=== PATIENT | male | born 1960 | race Caucasian/White ===

== ENCOUNTER 2022-02-11 20:51 | Observation (INO) ==
[2022-02-11] MEDS ORDERED: *HR* Dextrose 50 % in Water (Syg) 50 ML SYRINGE ONE (21:02)
[2022-02-11] MEDS ORDERED: *HR* Dextrose 50 % in Water (Syg) 50 ML SYRINGE IVP ONE (21:02)
[2022-02-11 21:24] LABS: Basophils # 0.1 K/mcL (0.0-0.2); Basophils % 0.3 %; Eosinophils # 0.1 K/mcL (0.0-0.6); Eosinophils % 0.5 %; Hematocrit 56.7 % (37.5-50.1); Hemoglobin 18.4 g/dL (12.9-16.9); Immature Granulocytes % 0.5 % (0-4); Lymphocytes # 3.3 K/mcL (0.6-4.6); Lymphocytes % 18.2 %; Mean Corpuscular HGB Conc 32.5 g/dL (31.6-35.5); Mean Corpuscular Hemoglobin 27.7 pg (28.0-33.3); Mean Corpuscular Volume 85.3 fL (83.0-100.0); Mean Platelet Volume 10.1 fL (9.4-12.4); Monocytes % 11.1 %; Neutrophils # 12.7 K/mcL (1.6-8.9); Platelet Count 202 K/mcL (140-400); Red Blood Count 6.65 M/mcL (4.19-5.50); Red Cell Distribution Width 16.6 % (11.5-14.5); Segmented Neutrophils % 69.4 %; White Blood Count 18.2 K/mcL (4.3-11.1)
[2022-02-11 21:45] LABS: Alanine Aminotransferase 26 Units/L (7-52); Albumin 4.6 g/dL (3.5-5.7); Albumin/Globulin Ratio 1.5 (1.1-2.2); Alkaline Phosphatase 73 Units/L (34-104); Aspartate Amino Transferase 29 Units/L (13-39); BUN/Creatinine Ratio 18 (6-26); Bilirubin,Direct 0.2 mg/dL (0.0-0.2); Bilirubin,Indirect 0.4 mg/dL (0.0-1.0); Bilirubin,Total 0.6 mg/dL (0.3-1.0); Blood Urea Nitrogen 18 mg/dL (8-23); Calcium 10.4 mg/dL (8.6-10.3); Carbon Dioxide 28 mEq/L (23-29); Chloride 102 mEq/L (98-107); Creatine Kinase 195 Units/L (30-223); Globulin 3.1 g/dL (2.4-3.5); Glucose 24 mg/dL (70-105); Osmolality,Calculated 284 (280-300); Potassium 3.4 mEq/L (3.5-5.1); Sodium 138 mEq/L (136-145); Total Protein 7.7 g/dL (6.4-8.9); Troponin I < 0.03 ng/mL (< 0.04)
[2022-02-11 22:12] LABS: INR 1.2; Prothrombin Time 13.4 Seconds (9.4-12.1)
[2022-02-11 22:14] LABS: Activated Partial Thrombo Time 35.2 Seconds (26.0-36.0)
[2022-02-11] MEDS ORDERED: D5% in 0.9% NACL 1,000 ML IVC SCH (23:30)
[2022-02-11] MEDS ORDERED: Dextrose 50 % in Water (Vial) 100 ML in D5% in 0.45% NACL 1,000 ML IVC SCH (23:45)
[2022-02-12 00:03] LABS: Bilirubin,Urine Negative (Negative); Blood,Urine Small (Negative); Clarity,Urine Clear (Clear); Color,Urine Light-Yellow (Yellow); Glucose,Urine (UA) >=1000 mg/dL (Normal); Ketones,Urine Trace mg/dL (Negative); Leukocyte Esterase,Urine Negative (Negative); Mucus,Urine Few per lpf (None-Few); Nitrite,Urine Negative (Negative); PH,Urine 6.5 pH Units (5.0-8.0); Protein,Urine Trace mg/dL (Neg-Trace); RBC,Urine 15-30 per hpf (0-3); Specific Gravity,Urine 1.018 (1.010-1.025); Squamous Epithelial Cell,Urine Few per hpf (None-Few); Urobilinogen,Urine Normal (Normal)
[2022-02-12] MEDS ORDERED: Naloxone 0.4 MG/ML INJ IVP PRN (00:07)
[2022-02-12] MEDS ORDERED: Ondansetron 4 MG/2 ML VIAL IVP PRN (00:07)
[2022-02-12 00:35] LABS: Amphetamine Screen,Urine Negative ng/mL (Cutoff=1000); Barbiturate Screen,Urine Negative ng/mL (Cutoff=200); Benzodiazepines Screen,Urine Negative ng/mL (Cutoff=200); Cannabinoid Screen,Urine Positive ng/mL (Cutoff = 50); Cocaine Screen,Urine Negative ng/mL (Cutoff= 300); Opiate Screen,Urine Negative ng/mL (Cutoff=300); Phencyclidine Screen,Urine Negative ng/mL (Cutoff=25)
[2022-02-12] MEDS ORDERED: D5% in Water 1,000 ML IVC PRN (00:46)
[2022-02-12] MEDS ORDERED: Dextrose Gel 15 GM/37.5 ML TUBE PO PRN ×2 (00:46)
[2022-02-12] MEDS ORDERED: *HR* Dextrose 50 % in Water (Syg) 50 ML SYRINGE IVP PRN (00:46)
[2022-02-12 01:20] LABS: Adenovirus Not Detected (Not Detect); Coronavirus 229E Not Detected (Not Detect); Coronavirus HKU1 Not Detected (Not Detect); Coronavirus NL63 Not Detected (Not Detect); Coronavirus OC43 Not Detected (Not Detect); Human Metapneumovirus Not Detected (Not Detect); Human Rhinovirus/Enterovirus Not Detected (Not Detect); Influenza A Subtype 2009 H1 Not Detected (Not Detect); Influenza B Not Detected (Not Detect); Parainfluenza Virus 1 Not Detected (Not Detect); Parainfluenza Virus 2 Not Detected (Not Detect); Parainfluenza Virus 3 Not Detected (Not Detect); Parainfluenza Virus 4 Not Detected (Not Detect); SARS-CoV-2 Not Detected (Not Detect)
[2022-02-12 01:21] LABS: Bordetella Pertussis Not Detected (Not Detect); Chlamydophila pneumoniae Not Detected (Not Detect); Mycoplasma pneumoniae Not Detected (Not Detect); Respiratory Syncytial Virus Not Detected (Not Detect)
[2022-02-12] MEDS ORDERED: *HR* Metoprolol 5 MG/5 ML VIAL IVP PRN (01:28)
[2022-02-12] MEDS ORDERED: D5% in 0.9% NACL w KCl 20 MEQ/1,000 ML MLS IVC SCH (01:45)
[2022-02-12 04:28] LABS: Basophils % 0.1 %; Eosinophils # 0.1 K/mcL (0.0-0.6); Eosinophils % 0.4 %; Hematocrit 52.5 % (37.5-50.1); Immature Granulocytes % 0.4 % (0-4); Lymphocytes # 2.2 K/mcL (0.6-4.6); Lymphocytes % 15.7 %; Mean Corpuscular HGB Conc 32.4 g/dL (31.6-35.5); Mean Corpuscular Hemoglobin 27.4 pg (28.0-33.3); Mean Corpuscular Volume 84.7 fL (83.0-100.0); Monocytes # 1.1 K/mcL (0.0-1.3); Monocytes % 7.8 %; Neutrophils # 10.4 K/mcL (1.6-8.9); Platelet Count 161 K/mcL (140-400); Red Cell Distribution Width 15.3 % (11.5-14.5); Segmented Neutrophils % 75.6 %; White Blood Count 13.8 K/mcL (4.3-11.1)
[2022-02-12 04:45] LABS: BUN/Creatinine Ratio 24 (6-26); Blood Urea Nitrogen 16 mg/dL (8-23); Calcium 8.8 mg/dL (8.6-10.3); Carbon Dioxide 25 mEq/L (23-29); Chloride 104 mEq/L (98-107); Glucose 105 mg/dL (70-105); Osmolality,Calculated 288 (280-300); Sodium 138 mEq/L (136-145)
[2022-02-12] MEDS: Ipratropium/Albuterol Neb 3 ML IH SCH ×4 (04:56→15:41)
[2022-02-12 05:00] LABS: Thyroid Stimulating Hormone 0.409 mcIU/mL (0.340-5.600)
[2022-02-12] MEDS ORDERED: *HR* Heparin 5,000 UNIT/ML VIAL SQ SCH (06:00)
[2022-02-12] MEDS ORDERED: Tiotropium 10 INH DOSE IH SCH (10:00)
[2022-02-12] MEDS ORDERED: Budesonide/Formoterol 160/4.5 1 PUFF INH IH SCH (10:00)
[2022-02-12 10:55] VITALS: BP 110/45; TEMP 97.9
[2022-02-12 12:20] LABS: Estimated Average Glucose 169 mg/dl; Hemoglobin A1C 7.5 %
[2022-02-12 13:02] VITALS: PULSE 68
[2022-02-12 13:12] VITALS: O2SAT 96
== END 2022-02-12 15:05 | disposition home or self-care (01) ==
LOC: EMEROOARM 20:51 → INTOOBSV 02-12 00:40 → 2NNU 02-12 00:40
PROVIDERS: ADMIT Internal Medicine; ATTEND Internal Medicine